=== PATIENT | male | born 1970 ===

== ENCOUNTER 2016-07-20 09:42 | Inpatient (IN) | payer OTHER ==
[2016-07-20] MEDS ORDERED: Vancomycin 1gm in NS 250ml 250 ML IVPB STA (10:21)
[2016-07-20] MEDS ORDERED: TDAP Vaccine 0.5 mL Syr IM ONE (10:21)
[2016-07-20] MEDS ORDERED: Piperacillin/Tazobact 3.375 gm 100 ML IVPB STA (10:22)
[2016-07-20 10:42] LABS: ADD MANUAL DIFF? NO
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
[2016-07-20 10:50] LABS: BASO # 0.04 K/mm3 (0.0-2.0); BASO % 0.8 % (0.0-3.0); EOS # 0.4 (0.0-0.7); EOS % 7.1 % (1.5-5.0); GRAN # 2.11 (1.4-6.5); GRAN % 41.5 % (50.0-68.0); HEMATOCRIT 41.7 % (42.0-52.0); LYMPH # 2.2 (1.2-3.4); LYMPH % 43.3 % (22.0-35.0); MEAN CELL VOLUME 84.4 fL (80.0-105.0); MEAN CORPUSCULAR HEMOGLOBIN 27.7 pg (25.0-35.0); MEAN CORPUSCULAR HGB CONC 32.9 g/dl (31.0-37.0); MEAN PLATELET VOLUME 9.5 fl (7.0-11.0); MONO # 0.4 (0.1-0.6); MONO % 7.3 % (1.0-6.0); PLATELET COUNT 226 10^3/uL (120.0-450.0); RED CELL DISTRIBUTION WIDTH 14.1 % (11.5-14.5); WHITE BLOOD COUNT 5.1 10^3/ul (4.5-11.0)
[2016-07-20 10:59] LABS: ALB/GLOB RATIO 1.1 (1.1-1.8); ALKALINE PHOSPHATASE 51 U/L (38-133); ALT/SGPT 25 U/L (7-56); AST/SGOT 28 U/L (15-59); BILIRUBIN,TOTAL 0.7 mg/dL (0.2-1.3); BLOOD UREA NITROGEN 16 mg/dL (7-21); CALCIUM 8.8 mg/dL (8.4-10.5); CARBON DIOXIDE 28 mmol/L (21-33); CHLORIDE 104 mmol/L (98-107); GFR AFRICAN-AMERICAN > 60; GLUCOSE,RANDOM 107 mg/dL (70-110); POTASSIUM 4.1 mmol/L (3.6-5.0); SODIUM 140 mmol/L (132-148); TOTAL PROTEIN 7.4 g/dL (5.8-8.3)
[2016-07-20 11:01] LABS: INR 1.06 (0.93-1.08); PARTIAL THROMBOPLASTIN TIME 28.7 Seconds (23.7-30.8)
--- NOTE | 2016-07-20 11:39 | US ---
PROCEDURE: Left lower extremity venous US HISTORY: Leg pain and swelling. Evaluate for DVT. PHYSICIAN(S): David Jeffers MD. TECHNIQUE: Duplex sonography and color-flow Doppler with graded compression were used to evaluate the deep venous system of the left lower extremity. FINDINGS: The visualized deep venous system of the left lower extremity is sonographically normal and compressible. Normal wave forms and augmentation are seen. There is no sonographic evidence for deep venous thrombosis in the visualized segments of the left lower extremity. IMPRESSION: 1. No sonographic evidence for deep venous thrombosis in the visualized segments of the left lower extremity.
[2016-07-20] MEDS ORDERED: Lindane 1% Lotion(60 ml) TOP ONE (14:07)
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
[2016-07-20] MEDS: Vancomycin 1gm in NS 250ml 250 ML IVPB SCH (14:56)
[2016-07-20] MEDS: Piperacillin/Tazobact 3.375 gm 100 ML IVPB SCH ×2 (17:47→23:15)
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
[2016-07-21] MEDS: Vancomycin 1gm in NS 250ml 250 ML IVPB SCH ×2 (01:42→15:36)
[2016-07-21] MEDS: Pantoprazole 40 mg EC Tab PO SCH (06:11)
[2016-07-21 07:15] LABS: MEAN CELL VOLUME 83.5 fL (80.0-105.0); MEAN CORPUSCULAR HEMOGLOBIN 27.7 pg (25.0-35.0); MEAN CORPUSCULAR HGB CONC 33.2 g/dl (31.0-37.0); MEAN PLATELET VOLUME 9.6 fl (7.0-11.0); WHITE BLOOD COUNT 5.5 10^3/ul (4.5-11.0)
[2016-07-21 07:22] VITALS: RESP 20
[2016-07-21 08:12] LABS: BLOOD UREA NITROGEN 10 mg/dL (7-21); CALCIUM 8.5 mg/dL (8.4-10.5); CARBON DIOXIDE 29 mmol/L (21-33); CHLORIDE 103 mmol/L (98-107); GFR AFRICAN-AMERICAN > 60; GLUCOSE,RANDOM 118 mg/dL (70-110); POTASSIUM 4.3 mmol/L (3.6-5.0); SODIUM 139 mmol/L (132-148)
[2016-07-21] MEDS ORDERED: Hydrocortisone 1% Cream (30 GM) TOP PRN (11:42)
[2016-07-21] MEDS: Piperacillin/Tazobact 3.375 gm 100 ML IVPB SCH ×2 (12:12→17:48)
--- NOTE | 2016-07-21 13:51 | CP.PCM.PN ---
<Edin Zaragoza - Last Filed: 07/21/16 13:43> Subjective - Date & Time of Evaluation Date of Evaluation: 07/21/16 Time of Evaluation: 07:00 - Subjective Subjective: Patient seen and examined at bedside. Overnight patient complained of generalized pruritus on his eyes, chest, back, and legs, stating that Benadryl did not help. Patient denies fever, chills, chest pain, shortness of breath, nausea, and vomiting. Objective - Vital Signs/Intake and Output Vital Signs (last 24 hours): Temp Pulse Resp BP Pulse Ox 97.7 F 75 20 147/90 96 07/21/16 07:21 07/21/16 10:24 07/21/16 07:21 07/21/16 10:24 07/21/16 07:21 Intake and Output: 07/21/16 07/21/16 06:59 18:59 Intake Total 910 Balance 910 - Medications Medications: Current Medications Amlodipine Besylate (Norvasc) 2.5 mg PO DAILY [facility] Last Admin: 07/21/16 10:24 Dose: 2.5 mg Diphenhydramine HCl (Benadryl) 25 mg PO Q6 PRN PRN Reason: Allergy symptoms Last Admin: 07/21/16 10:22 Dose: 25 mg Heparin Sodium (Porcine) (Heparin) 5,000 units SC Q12 NATASHA PRN Reason: Protocol Last Admin: 07/21/16 10:21 Dose: 5,000 units Hydrocortisone (Cortizone 1% Cream) 0 gm TOP BID PRN PRN Reason: Itching / Pruritus Vancomycin HCl (Vancomycin 1gm) 250 mls @ 167 mls/hr IVPB Q12H NATASHA PRN Reason: Protocol Last Admin: 07/21/16 01:42 Dose: 167 mls/hr Piperacillin Sod/Tazobactam Sod (Zosyn 3.375 In Ns 100ml) 100 mls @ 200 mls/hr IVPB Q6 NATASHA PRN Reason: Protocol Stop: 07/21/16 18:29 Last Admin: 07/21/16 12:12 Dose: 200 mls/hr Ibuprofen (Motrin Tab) 600 mg PO Q6H PRN PRN Reason: Pain, moderate (4-7) Last Admin: 07/21/16 10:22 Dose: 600 mg Pantoprazole Sodium (Protonix Ec Tab) 40 mg PO 0630 NATASHA Last Admin: 07/21/16 06:11 Dose: Not Given - Labs Labs: 07/21/16 07:04 07/21/16 07:04 PT 11.4 Seconds (9.9-11.8) 07/20/16 10:40 INR 1.06 (0.93-1.08) 07/20/16 10:40 APTT 27.2 Seconds (23.7-30.8) 07/20/16 15:30 - Constitutional Appears: Non-toxic, No Acute Distress - Head Exam Head Exam: ATRAUMATIC, NORMAL INSPECTION - Eye Exam Eye Exam: EOMI, PERRL Additional comments: clear discharge, bilateral periorbital swelling - ENT Exam ENT Exam: Mucous Membranes Moist - Neck Exam Neck Exam: Normal Inspection - Respiratory Exam Respiratory Exam: Clear to Ausculation Bilateral, NORMAL BREATHING PATTERN. absent: Wheezes, Respiratory Distress - Cardiovascular Exam Cardiovascular Exam: REGULAR RHYTHM, RRR, +S1, +S2. absent: Murmur - GI/Abdominal Exam GI & Abdominal Exam: Soft, Normal Bowel Sounds. absent: Tenderness - Extremities Exam Extremities Exam: Calf Tenderness Additional comments: Left medial lower extremity erthyema, rash, tenderness, swelling; purple appearance of the left mid bowling; serosanguineous drainage appreciated - Back Exam Back Exam: absent: CVA tenderness (L), CVA tenderness (R) - Neurological Exam Neurological Exam: Alert, Awake, Oriented x3 - Psychiatric Exam Psychiatric exam: Normal Affect, Normal Mood - Skin Skin Exam: Rash, Warm Additional comments: Diffuse rashes throughout body, particularly around groin area, and right upper extremity; Left medial lower extremity erthyema, rash, tenderness, swelling Assessment and Plan - Assessment and Plan (Free Text) Assessment: Left Lower Extremity Cellulitis: Afebrile, No leukocytosis, not in respiratory distress ESR 7 Infectious Disease, Dr. Godfrey, consulted. Help appreciated. Podiatry, Dr. Simpson, consulted. Help appreciated. Left lower extremity venous ultrasound- no sonographic evidence for DVT Continue with Zosyn 3.375 gm IV q6h and Vancomycin 1 gm q12h Motrin 600 mg po q6h prn for pain Left tib/fib x-ray report pending Wound cultures pending Blood and urine cultures no growth in 24 hours Unremarkable LFT Diffuse Body Rash: Benadryl 25 mg po q6h prn Start topical hydrocortisone 1% Cocaine Abuse: UDS positive for cocaine Consulted patient on cocaine cessation HIV 1&2 ag/ab negative HTN: BP: 147/90 Norvasc 2.5 mg po qd Prophylactic Measures: GI: Protonix 40 mg po qd DVT: Heparin 5000 units sc q12h <Benedicto Krishnan MD - Last Filed: 07/21/16 18:02> Objective - Vital Signs/Intake and Output Vital Signs (last 24 hours): Temp Pulse Resp BP Pulse Ox 98 F 83 20 168/88 H 96 07/21/16 16:00 07/21/16 16:00 07/21/16 16:00 07/21/16 16:00 07/21/16 07:21 Intake and Output: 07/21/16 07/21/16 06:59 18:59 Intake Total 910 1320 Balance 910 1320 - Medications Medications: Current Medications Amlodipine Besylate (Norvasc) 2.5 mg PO DAILY [facility] Last Admin: 07/21/16 10:24 Dose: 2.5 mg Betamethasone/Clotrimazole (Lotrisone) 0 gm TOP BID NATASHA Diphenhydramine HCl (Benadryl) 25 mg PO Q6 PRN PRN Reason: Allergy symptoms Last Admin: 07/21/16 17:53 Dose: 25 mg Heparin Sodium (Porcine) (Heparin) 5,000 units SC Q12 NATASHA PRN Reason: Protocol Last Admin: 07/21/16 10:21 Dose: 5,000 units Hydrocortisone (Cortizone 1% Cream) 0 gm TOP BID PRN PRN Reason: Itching / Pruritus Last Admin: 07/21/16 13:00 Dose: 1 appl Vancomycin HCl (Vancomycin 1gm) 250 mls @ 167 mls/hr IVPB Q12H NATASHA PRN Reason: Protocol Last Admin: 07/21/16 01:42 Dose: 167 mls/hr Piperacillin Sod/Tazobactam Sod (Zosyn 3.375 In Ns 100ml) 100 mls @ 200 mls/hr IVPB Q6 NATASHA PRN Reason: Protocol Stop: 07/21/16 18:29 Last Admin: 07/21/16 17:48 Dose: 200 mls/hr Ibuprofen (Motrin Tab) 600 mg PO Q6H PRN PRN Reason: Pain, moderate (4-7) Last Admin: 07/21/16 10:22 Dose: 600 mg Pantoprazole Sodium (Protonix Ec Tab) 40 mg PO 0630 NATASHA Last Admin: 07/21/16 06:11 Dose: Not Given - Labs Labs: 07/21/16 07:04 07/21/16 07:04 PT 11.4 Seconds (9.9-11.8) 07/20/16 10:40 INR 1.06 (0.93-1.08) 07/20/16 10:40 APTT 27.2 Seconds (23.7-30.8) 07/20/16 15:30 Attending/Attestation - Attestation I have personally seen and examined this patient.: Yes I have fully participated in the care of the patient.: Yes I have reviewed all pertinent clinical information, including history, physical exam and plan: Yes Notes (Text): Patient was seen and examined with manager of medical .Agreed with resident assessment and plan. 46 yrs old male with PMH of drug abuse, chronic right leg ulcer is admitted with increase discharged from ulcer, will follow up cultures, continue IV antibiotics as per ID.We will also check procalcitonin level. Issue of drug abuse was discussed in detail with patient. Management plan was discussed in detail with patient Education was provided.
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
[2016-07-21] MEDS: Clotrimazole/Betamethasone Cream(15 gm) TOP SCH (19:05)
[2016-07-22] MEDS: Vancomycin 1gm in NS 250ml 250 ML IVPB SCH (01:11)
[2016-07-22] MEDS: Pantoprazole 40 mg EC Tab PO SCH (06:12)
[2016-07-22 07:06] LABS: ADD MANUAL DIFF? NO
[2016-07-22 07:13] LABS: BASO # 0.04 K/mm3 (0.0-2.0); BASO % 0.7 % (0.0-3.0); EOS # 0.5 (0.0-0.7); EOS % 8.7 % (1.5-5.0); GRAN # 1.78 (1.4-6.5); LYMPH # 2.5 (1.2-3.4); LYMPH % 46.9 % (22.0-35.0); MEAN CELL VOLUME 83.5 fL (80.0-105.0); MEAN CORPUSCULAR HEMOGLOBIN 27.8 pg (25.0-35.0); MEAN CORPUSCULAR HGB CONC 33.3 g/dl (31.0-37.0); MEAN PLATELET VOLUME 9.5 fl (7.0-11.0); MONO # 0.6 (0.1-0.6); MONO % 10.7 % (1.0-6.0); PLATELET COUNT 234 10^3/uL (120.0-450.0); RED CELL DISTRIBUTION WIDTH 13.8 % (11.5-14.5); WHITE BLOOD COUNT 5.4 10^3/ul (4.5-11.0)
[2016-07-22 07:54] LABS: BLOOD UREA NITROGEN 8 mg/dL (7-21); CALCIUM 8.7 mg/dL (8.4-10.5); CARBON DIOXIDE 29 mmol/L (21-33); CHLORIDE 104 mmol/L (98-107); GFR AFRICAN-AMERICAN > 60; GLUCOSE,RANDOM 111 mg/dL (70-110); POTASSIUM 4.3 mmol/L (3.6-5.0); SODIUM 141 mmol/L (132-148)
[2016-07-22 08:30] VITALS: PULSE 75; TEMP 98.3; O2SAT 99
[2016-07-22] MEDS: Clotrimazole/Betamethasone Cream(15 gm) TOP SCH (10:31)
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
[2016-07-22 13:51] VITALS: BP 149/88
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
== END 2016-07-22 14:57 | disposition home or self-care (01) | DRG 277 ==
LOC: ED 09:42 → ERH 12:36 → 5RSO 14:09 → OBSVTOIN 15:29 → 5RNO 07-22 10:54
PROVIDERS: ADMIT Internal Medicine; ATTEND Internal Medicine
DX: L03.116 Cellulitis of left lower limb (principal); F14.10 Cocaine abuse, uncomplicated; I10 Essential (primary) hypertension; F17.210 Nicotine dependence, cigarettes, uncomplicated; B86 Scabies; H10.10 Acute atopic conjunctivitis, unspecified eye; R21 Rash and other nonspecific skin eruption; L29.9 Pruritus, unspecified